=== PATIENT | female | born 1965 | race Caucasian/White ===

== ENCOUNTER 2018-01-17 16:14 | Emergency (ER) | payer OTHER ==
[~2018-01-17] VITALS: Ht 170.2 cm; Wt 81.7 kg
[~2018-01-17 16:14] MED LIST: AMBIEN 10 MG TA10 MG; ASPIRIN325 PO; CARDIZEM CD240 MG PO; CEPHALEXIN 250250 MG; DEPAKOTE500 MG PO; FLEXERIL PO; HYDROCODON-ACE1 EACH PO; HYDROCODONE-AP1 EAC6 PO; LISINOPRIL10 MG PO; MACROBID 100 M100 M1 PO; MEDROLDOSEPACK PO; MOBIC15 MG; MOBIC15 MG PO; NORCO 5-325 TA1 EACH PO; PRILOSEC 20 MG20 MG PO; PYRIDIUM200 MG PO; REMERON15 MG; ROBAXIN 750 MG750 MG PO; TRAMADOL 50 MG50 MG PO; TYLENOL325 MG PO; ULTRAM 50MG TAB50 MG PO; ZANAFLEX4 M1; [UNRECOGNIZED DRUG - REMARK]
[2018-01-17] MEDS ORDERED: ASPIR 8181 MG PO (16:27)
[2018-01-17] MEDS ORDERED: POTASSIUM20 PO (16:33)
[2018-01-17] MEDS ORDERED: LASIX 40 MG TAB40 M2 PO (16:33)
[2018-01-17] MEDS ORDERED: PRAVACHOL20 MG PO (16:33)
[2018-01-17] MEDS ORDERED: TOPAMAX 25 MG T25 M1 (16:33)
[2018-01-17] MEDS ORDERED: SINGULAIR 10 MG10 M1 PO (16:34)
[2018-01-17] MEDS ORDERED: COUMADIN 1MG TAB1 M1 PO (16:34)
[2018-01-17] MEDS ORDERED: COUMADIN 5 MG TA5 M1 PO (16:34)
[2018-01-17] MEDS ORDERED: MULTI VITAMIN1 EACH PO (16:34)
[2018-01-17 16:41] LABS: ABSOLUTE BASOPHILS 0.1 thou/uL (0.0-0.2); ABSOLUTE EOSINOPHILS 0.1 thou/uL (0.0-0.7); ABSOLUTE LYMPHOCYTES 1.5 thou/uL (0.8-5.3); ABSOLUTE MONOCYTES 0.6 thou/uL (0.0-1.2); ABSOLUTE NEUTROPHILS 3.2 thou/uL (1.6-8.1); BASOPHILS 1.4 %; HEMATOCRIT 36.1 % (37.0-47.0); LYMPHOCYTES 27.9 %; MCH 29.7 pg (26.0-34.0); MCHC 33.3 g/dL (28.0-37.0); MCV 89.3 fL (80.0-100.0); MONOCYTES 10.4 %; MPV 8.4 fl. (7.2-11.1); NUCLEATED RBCS 0 /100WBC; PLATELET COUNT* 165 thou/uL (150-400); POLYS 59.3 %; RBC 4.04 mil/uL (4.20-5.00); WBC 5.4 thou/uL (4.0-11.0)
[2018-01-17 17:00] LABS: ANION GAP 9 mmol/L (7-16); APTT 41.8 Seconds (25.0-31.3); BUN 13 mg/dL (7-18); CALCIUM 8.4 mg/dL (8.5-10.1); CHLORIDE 106 mmol/L (98-107); CO2 25 mmol/L (21-32); CREATININE 0.9 mg/dL (0.6-1.3); GLUCOSE 86 mg/dL (70-99); POTASSIUM 3.3 mmol/L (3.5-5.1); PROTIME 62.3 Seconds (9.20-11.50); SODIUM 140 mmol/L (136-145)
[2018-01-17 17:10] LABS: INR 6.6
[2018-01-17 17:19] LABS: ALBUMIN 2.5 g/dL (3.4-5.0); ALKALINE PHOSPHATASE 112 U/L (46-116); CK-MB MASS 0.7 ng/mL (<0.5-3.6); LIPASE 205 U/L (73-393); MAGNESIUM 1.5 mg/dL (1.8-2.4); NT-PRO BRAIN NAT PEPTIDE 93 pg/mL (<300); SGOT 35 U/L (15-37); SGPT 27 U/L (30-65); TOTAL BILIRUBIN 0.5 mg/dL (<0.1-1.0); TOTAL PROTEIN 6.3 g/dL (6.4-8.2); TROPONIN-I LEVEL <0.06 ng/mL (<0.06)
[2018-01-17 17:39] VITALS: BP 121/58
--- NOTE | 2018-01-18 11:35 | EKG ---
[place] [address] ELECTROCARDIOGRAM REPORT Name: ELMER ABRAHAM [id number] Admission: 01/17/18 Attend Phys: Discharge: 01/17/18 Date of : 69 Report #: [id number] THIS REPORT FOR: //name// [facility] ED Test Date: 2018-01-17 Test Time: 16:18:04 Pat Name: ELMER ABRAHAM Department: Room: Gender: F Manager Field Service: TP : 1965 Requested By: Saeed Bustos Order Number: [id number] MD: Mckay Workman Measurements Intervals [place] Rate: 79 P: 42 [place]: 171 QRS: -13 QRSD: 94 T: 75 QT: 410 QTc: 471 Interpretive Statements Sinus rhythm nonspecific st changes Compared to ECG 04/18/2015 00:44:45 No significant changes Electronically Signed On 01-18-2018 11:35:20 CDT by Mckay Workman [email or web address] <ELECTRONICALLY SIGNED> By: Mckay Workman MD, [facility] 01/18/18 1135 [id number] 17 Mckay Workman MD, FACC /EPI
== END 2018-01-17 17:39 | disposition home or self-care (01) ==
LOC: M.ERS 16:14
PROVIDERS: Family Medicine
DX: R07.9 Chest pain, unspecified (principal); F41.9 Anxiety disorder, unspecified; R79.1 Abnormal coagulation profile; F32.9 Major depressive disorder, single episode, unspecified; F43.10 Post-traumatic stress disorder, unspecified; I48.91 Unspecified atrial fibrillation; I71.9 Aortic aneurysm of unspecified site, without rupture; Z88.5 Allergy status to narcotic agent; Z88.2 Allergy status to sulfonamides